=== PATIENT | male | born 1945 | race Two or more races ===

== ENCOUNTER 2024-09-16 23:02 | Inpatient (IN) | payer OTHER, SELFPAY ==
[2024-09-16 19:17] VITALS: BP 142/49; BMI 28.1
[2024-09-16 19:29] LABS: % Basophils 0.3 % (0-2); % Eosinophils 0.1 % (0-6); % Immature Granulocytes 0.4 % (0-0.5); % Lymphocytes 4.6 % (20.5-51.1); % Monocytes 6.6 % (1.7-9.3); Absolute Basophils 0.1 10^3/uL (0-0.2); Absolute Immature Granulocytes 0.1 10^3/uL (0-0.05); Absolute Lymphocytes 0.9 10^3/uL (1.2-3.4); Absolute Monocytes 1.2 10^3/uL (0.1-0.6); Absolute Neutrophils 16.4 10^3/uL (1.4-6.5); Hematocrit 38.4 % (39.0-52.0); Hemoglobin 13.3 g/dL (13.0-18.0); Mean Corp Hgb Conc. 34.6 g/dL (33.0-37.0); Mean Corpuscular Volume 89.5 fL (80.0-94.0); Mean Platelet Volume 8.8 fL (7.4-10.4); Nucleated Red Blood Cells % 0 % (-); Platelet Count 192 10^3/uL (130-400); Red Blood Cell Count 4.29 10^6/uL (4.70-6.10); Red Cell Dist. Width 13.4 % (11.5-14.5); White Blood Cell Count 18.6 10^3/uL (4.8-10.8)
[2024-09-16] MEDS: TYLENOL 650 MG PO (19:38)
[2024-09-16 19:44] LABS: Blood Urea Nitrogen 23 mg/dl (9-20); Calcium 9.5 mg/dl (8.4-10.2); Carbon Dioxide 30 mmol/L (22-30); Chloride 99 mmol/L (98-107); Estimated Creatinine Clearance 49 ml/min; Glucose 209 mg/dl (70-99); Sodium 137 mmol/L (135-145); eGFR > 60.00
[2024-09-16 19:45] LABS: Lactic Acid 1.9 mmol/L (0.7-2.0)
--- NOTE | 2024-09-16 19:50 | ED.GENMED ---
History of Present Illness
General
Chief Complaint: Fever
Source: patient and family
Time Seen by Provider: 09/16/24 19:36
History of Present Illness
History of Present Illness:
This patient is a 79-year-old male that presents emergency department with generally feeling unwell since last afternoon. He went out this morning around 8 AM to clean the yard and he came into the house and said he just does not feel good. He has
not had anything to eat or drink all day and had an episode of vomiting just prior to the ambulance taking patient here. He describes feeling tired. He denies headache, photophobia, recent tick bites, rash, cough, sore throat, rhinorrhea, dysuria,
urgency, frequency, hematuria, back pain. His states he has not been confused. He does note generalized abdominal discomfort that is vague and difficult to describe. He also has felt since yesterday that he is not passing urine. He was
bladder scanned here, consistent with 110 mL, was encouraged to urinate and passed approximately 50 mL for analysis here.
Past History
Past History
ED Past Medical History: HTN, Hypercholesterolemia and NIDDM
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
Social History
Tobacco: Non-smoker
Alcohol: None
Drug: None
Personal:
Living: with family
Phy Exam
Physical Exam
Physical Exam:
GENERAL: Awake but tired appearing, in no apparent distress
EYE: pupils equal and reactive, no photophobia
NECK: Supple, no significant adenopathy.
ENT: o/p clr, mm slightly dry.
CARDIAC: Regular rate and rhythm .
LUNGS: Clear breath sounds bilaterally, no acute respiratory distress, no wheezes/rales/rhonchi
ABDOMEN: Soft, diffuse nonspecific mild tenderness, no r/g, no cvat
NEUROLOGICAL: Awake and oriented, no focal neuro deficits
SKIN: Warm and dry, skin intact.
MUSCULOSKELETAL: No edema, well perfused.
PSYCH: Normal and appropriate interaction.
Sepsis
Sepsis Screening
Sepsis Assessment: Sepsis
Sepsis Screen
Sepsis Screen: Sepsis
Date: 09/16/24
Time: 22:20
Course
Orders/Labs/Results
Orders:
Orders
09/16/24 19:22
Basic Metabolic Panel Urgent
Complete Blood Count/With Diff Urgent
Lactic Acid Q4H
Comment: ON ICE, CANCEL 2ND ORDER IF FIRST LACTIC ACID LEVEL <2
Urinalysis Reflex To Culture Urgent
Date Specimen was Collected: 09/16/24
Time Specimen was Collected: 19:17
Urine Microscopic Reflex Cult Urgent
Blood Culture Q20M
AYAD Source: Blood/Venous
Specimen Description:
Comment: Urgent from separate sites. If patient screens positive for possible sepsis
Urine Culture Urgent
AYAD Source: U
Specimen Description:
Date Specimen was Collected: 09/16/24
Time Specimen was Collected: 19:17
09/16/24 19:37
Acetaminophen [Tylenol] 650 mg .ROUTE .STK-MED ONE
09/16/24 19:38
Acetaminophen [Tylenol] 650 mg PO NOW STA
09/16/24 19:49
Electrocardiogram (*1) Urgent
Reason for Study: Other
Other Reason for Exam: sepsis
CT Abd/pelvis W Iv Cont Urgent
Comment:
Reason For Exam: fever, abd pain
Cardiac Monitoring- Treatment ONCE
EKG- Treatment ONCE
0.9% Sodium Chloride 1000 ml [Nss] 1,800 ml IV NOW STA
09/16/24 19:57
Blood Culture Q20M
AYAD Source: Blood/Venous
Specimen Description:
Comment: Urgent from separate sites. If patient screens positive for possible sepsis
09/16/24 20:16
CR Chest - 2 Views Urgent
Comment:
Reason For Exam: fever
09/16/24 21:02
Cefepime HCl [Maxipime] 2,000 mg IV NOW STA
09/16/24 21:34
Sterile Water [Sterile Water For Injection] 10 ml .ROUTE .K-MED ONE
09/16/24 21:56
Electrocardiogram (*1) Urgent
Reason for Study: Other
Other Reason for Exam: sepsis
EKG- Treatment ONCE
09/16/24 22:09
Admit/Transfer Patient As Directed
Co-Sign Provider:
Level of Care: Inpatient admission
Assign to:: Telemetry
Physician / Group: [email or web address]
Diagnosis: sepsis due to UTI
Reason for Telemetry: Other
Other Reason for Telemetry: sepsis due to UTI
Date to Stop Telemetry: 09/18/24
Time to Stop Telemetry: 11:00
Reason for Hospitalization: sepsis due to UTI
Expected length of stay greater than two midnights?: Yes
ELOS- Estimated Length of Stay in days: 3
I certify the patient meets the requirements for IP care: Yes
09/16/24 22:11
Code Status As Directed
Resuscitation Status: Full Code
09/16/24 23:30
Lactic Acid Q4H
Comment: ON ICE, CANCEL 2ND ORDER IF FIRST LACTIC ACID LEVEL <2
09/18/24 11:00
DC Protocol for Telemetry ONCE
Abnormal Lab Results
09/16/24
19:22
WBC 18.6 H 10^3/uL
(4.8-10.8)
RBC 4.29 L 10^6/uL
(4.70-6.10)
Hct 38.4 L %
(39.0-52.0)
Abs Immat Gran (auto) 0.1 H 10^3/uL
(0-0.05)
Absolute Neuts (auto) 16.4 H 10^3/uL
(1.4-6.5)
Absolute Lymphs (auto) 0.9 L 10^3/uL
(1.2-3.4)
Absolute Monos (auto) 1.2 H 10^3/uL
(0.1-0.6)
Neutrophils % 88.0 H %
(42.2-75.2)
Lymphocytes % 4.6 L %
(20.5-51.1)
BUN 23 H mg/dl
(9-20)
Glucose 209 H mg/dl
(70-99)
Ur Occult Blood Reflex 3+ A
(Negative)
Leukocyte Esterase Rfl 1+ A
(Negative)
Urine RBC 11-15 A /HPF
(0-2)
Urine WBC (Reflex) 26-30 A /HPF
(0-5)
Urine Bacteria (Reflex) Few A
(Negative)
Urine Glucose 3+ A
(Negative)
Urine Albumin (Reflex) 2+ A
(Neg - Trace)
09/16/24 19:22
09/16/24 19:22
Vital Signs
Initial and Last Documented VS:
Initial Vital Signs
Temp Pulse Resp BP Pulse Ox
102.5 F H 88 26 142/49 92
09/16/24 19:17 09/16/24 19:17 09/16/24 19:17 09/16/24 19:17 09/16/24 19:17
Last Documented Vital Signs
Temp Pulse Resp BP Pulse Ox
100.3 F 80 26 157/53 88
09/16/24 21:13 09/16/24 21:30 09/16/24 19:17 09/16/24 21:00 09/16/24 21:30
*Pulse Oximetry
SaO2: 92
Oxygen Mode of Delivery: Room air
*Critical Care Note
Total Time (30-74mins, 75-104mins- exclusive of procedures): 32
Update Note
Update Note:
Patient presents to the Emergency Department with difficulty passing urine, fever, weakness
Number and Complexity of Problems Addressed at the Encounter
� Chronic conditions affecting care:
� Acute Exacerbation and/or Progression of Chronic Illness:
� Differential Diagnosis includes: But not limited to pyelonephritis, sepsis, cholecystitis, urinary obstruction, etc. etc.
Amount and/or Complexity of Data to be Reviewed and Analyzed
� I performed an independent evaluation of and my interpretation is:
EKG: Read by me, normal sinus rhythm, normal rate, no acute ischemia
CT:Moderate diffuse bladder wall thickening concerning for cystitis versus bladder outlet obstruction.
Moderate prostate hypertrophy.
Gallstone.
Simple right renal cyst. Too small to characterize hypodense left renal lesion likely a benign cyst
Xrays: Chest x-ray NAD
Laboratory Studies: Normal lactic acid, leukocytosis noted, mild prerenal azotemia consistent with suspected dehydration, UA highly suggestive of infection
Other:
� Review of other/old records reveals: None available
� Clinical information was obtained by an independent historian: and neighbor who are bedside
� Prescriptions/Medications Considered but not given:
� Further testing considered but not performed:
Risk of Complications and/or Morbidity or Mortality of Patient Management
� Social determinants of health affecting care:
� Discussion with other providers (PCP, Hospitalists, Consultants, etc):
� Escalation of care including admission/observation vs risk of discharge considered: RN states that patient was noted to be unsteady and weak nonfocally upon walking here in the ER.
9:47 PM history physical findings etc. consistent with urosepsis. No findings to suggest obstructing stone, hydronephrosis, etc. Antibiotics and IV fluids started will discussed with hospitalist for admission and continued care
955pm case d/w his daughter, neurologist, with details re:case, questions answered, no concerns.
ED Attending Note
-
Portions of this chart may have been created with voice recognition software.� Occasional wrong word or��sound alike� substitutions may have occurred due to the inherent limitations of voice recognition software.
Discharge Plan
Departure
Patient Disposition: Admit
Date of Disposition: 09/16/24
Time of Disposition: 21:47
Admit to: Telemetry
Presentation/result/management discussed w/ accepting MD/DO: Hospitalist
Condition: Fair
Discharge Problem:
urosepsis
Prescriptions:
No Action
gabapentin 600 mg Tablet
600 mg PO HS
atorvastatin 20 mg Tablet
20 mg PO DAILY
metformin 850 mg Tablet
850 mg PO BIDWMEAL
Theragen Tablet
1 tab PO DAILY
amlodipine 5 mg Tablet
5 mg PO DAILY
acetaminophen [Tylenol Extra Strength] 500 mg Tablet
500 - 1,000 mg PO BIDPRN PRN (Reason: mild pain)
glimepiride 2 mg Tablet
2 mg PO BID
ascorbic acid (vitamin C) [Vitamin C] 500 mg Tablet
500 mg PO DAILY
docusate sodium [Colace] 100 mg Capsule
100 mg PO DAILY PRN (Reason: constipation)
aspirin 81 mg Tablet,Chewable
81 mg PO DAILY
lisinopril 40 mg Tablet
40 mg PO DAILY
atenolol 50 mg Tablet
50 mg PO DAILY
hydrochlorothiazide 12.5 mg Tablet
12.5 mg PO DAILY
Jardiance 10 mg Tablet
10 mg PO DAILY
Patient Comments:
09/16/2024, per spouse, spouse stopped giving pt. this med. because she thought it might be associated with him feeling weak.
Maalox
1 dose PO BIDPRN PRN (Reason: constipation)
Patient Comments:
09/16/2024, per spouse, pt. takes '1 ounce' of this med.
cyanocobalamin (vitamin B-12)
1 tab PO DAILY
thiamine HCl (vitamin B1)
1 tab PO DAILY
Referrals:
Alexander Garcia DO [Family Provider, Family Practice]
Interventions
Interventions:
*Risk Screen - Suicide Last Done: 09/16/24 19:43
*General Assessment Last Done: 09/16/24 19:43
*Neglect/Abuse Screening Last Done: 09/16/24 19:43
ED- Neurological Assessment Last Done: 09/16/24 19:30
ED-Skin Assessment Last Done: 09/16/24 19:30
Discharge Date and Time
Print Language: ERITREAN
[2024-09-16 19:51] LABS: Urine Albumin 2+ (Neg - Trace); Urine Bilirubin Negative (Negative); Urine Character Clear (Clear); Urine Color Yellow; Urine Glucose 3+ (Negative); Urine Ketone Negative (Negative); Urine Leukocyte 1+ (Negative); Urine Nitrite Negative (Negative); Urine Occult Blood 3+ (Negative); Urine Urobilinogen Negative (Neg - 1+)
[2024-09-16] MEDS: NSS 1800 ML IV (19:55)
[2024-09-16 20:00] VITALS: BP 141/67
[2024-09-16 20:08] LABS: Urine Squamous Cell 0-2 /LPF (Few)
[2024-09-16 20:09] LABS: Urine Bacteria Few (Negative); Urine White Cell 26-30 /HPF (0-5)
[2024-09-16 21:00] VITALS: BP 157/53
[2024-09-16] MEDS: MAXIPIME 2000 MG IV (21:52)
--- NOTE | 2024-09-16 21:53 | HPS.HSE ---
Family Physician
-
Family Physician: Alexander Garcia, DO
Chief Complaint
-
feeling unwell, low urine output
History of Present Illness
HPI
79M HX DMT2, HTN, HLD seen at ER:
- reports generally feeling unwell since last afternoon.
- not had anything to eat or drink all day and had an episode of vomiting just prior to the ambulance taking patient here.
- feeling tired
- states he has not been confused.
- reportws generalized abdominal discomfort that is vague and difficult to describe.
- felt since yesterday that he is not passing urine.
- bladder scanned here, consistent with 110 mL, was encouraged to urinate and passed approximately 50 mL for analysis here.
ROS:
- denies headache, photophobia, recent tick bites, rash, cough, sore throat, rhinorrhea, dysuria, urgency, frequency, hematuria, back pain.
Medical History
Past Medical History
Past Medical History: Reports HTN, Hypercholesterolemia and NIDDM
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
Social History
Tobacco: Non-smoker
Alcohol: None
Drug: None
Personal:
Living: With Family
Family History
Family History: Not pertinent
Allergies / Home Medications
Allergies reflects when Allergies were last updated in [employer].
Home Medications with original date entered in [employer]
Allergy/Medication List:
Allergies
Allergy/AdvReac Type Severity Reaction Status Date / Time
No Known Allergies Allergy Verified 09/16/24 19:16
Home Medications
Maalox 1 dose PO BIDPRN PRN constipation 09/16/24
acetaminophen 500 mg tablet (Tylenol Extra Strength) 500 - 1,000 mg PO BIDPRN PRN mild pain 09/16/24
amlodipine 5 mg tablet 5 mg PO DAILY 09/16/24
ascorbic acid (vitamin C) 500 mg tablet (Vitamin C) 500 mg PO DAILY 09/16/24
aspirin 81 mg chewable tablet 81 mg PO DAILY 09/16/24
atenolol 50 mg tablet 50 mg PO DAILY 09/16/24
atorvastatin 20 mg tablet 20 mg PO DAILY 09/16/24
cyanocobalamin (vitamin B-12) 1 tab PO DAILY 09/16/24
docusate sodium 100 mg capsule (Colace) 100 mg PO DAILY PRN constipation 09/16/24
empagliflozin 10 mg tablet (Jardiance) 10 mg PO DAILY 09/16/24
gabapentin 600 mg tablet 600 mg PO HS 09/16/24
glimepiride 2 mg tablet 2 mg PO BID 09/16/24
hydrochlorothiazide 12.5 mg tablet 12.5 mg PO DAILY 09/16/24
lisinopril 40 mg tablet 40 mg PO DAILY 09/16/24
metformin 850 mg tablet 850 mg PO BIDWMEAL 09/16/24
therapeutic multivitamin 1 tab PO DAILY 09/16/24
thiamine HCl (vitamin B1) 1 tab PO DAILY 09/16/24
Review of Systems
-
Constitutional: Reports See HPI and Fatigue
EENT: Reports No Symptoms
Respiratory: Reports No Symptoms
Cardiac: Reports No Symptoms
Abdomen/GI: Reports No Symptoms
: Reports No Symptoms
Musculoskeletal: Reports No Symptoms
Skin: Reports No Symptoms
Neurological: Reports No Symptoms
Endocrine: Reports No Symptoms
Hematologic/Lymphatic: Reports No Symptoms
Psych: Reports No Symptoms
Physical Exam
Vital Signs
Vital Signs
Temp Pulse Resp BP Pulse Ox
100.3 F 80 26 157/53 88
09/16/24 21:13 09/16/24 21:30 09/16/24 19:17 09/16/24 21:00 09/16/24 21:30
Physical Exam
General: Well Developed, Well Nourished and No Apparent Distress
HEENT: NormoCephalic, Moist mucous membranes and Atraumatic
Respiratory: Clear
Cardiac: S1/S2 and Regular Rhythm; No Murmur or Rub
GI: Soft, Non Tender, Non Distended and Normal Bowel Sounds; No Organomegaly
Rectal: Deferred by Provider
Musculoskeletal: No Clubbing, No Cyanosis and No Edema
Skin: No Rash
Neuro: Nonfocal/grossly intact
Laboratory Results
-
09/16/24 19:22
09/16/24 19:22
Laboratory Results
Lactic Acid 1.9 mmol/L (0.7-2.0) 09/16/24 19:22
Total Bilirubin Cancelled 09/16/24 19:22
AST Cancelled 09/16/24 19:22
ALT Cancelled 09/16/24 19:22
Alkaline Phosphatase Cancelled 09/16/24 19:22
Data Reviewed
-
Diagnostic Radiology: Report Reviewed by me
CT Scan: Report Reviewed by me
Medical Tests (Nuc Med, Echo, EKG etc): Report Reviewed by me
Lab Data: Labs Reviewed by me
Impression/Plan
-
Relevant VSS
09/16/24
19:17
Temp 102.5 F H
Pulse 88
Resp Rate 26
Blood pressure 142/49
SaO2 92
Oxygen Mode of Delivery Room air
Relevant Labs
09/16/24
19:22
WBC 18.6 H
Neutrophils % 88.0 H
Creatinine 1.0
eGFR > 60.00
Glucose 209 H
Lactic Acid 1.9
Urine Clarity Clear
Urine Nitrite (Reflex) Negative
Leukocyte Esterase Rfl 1+ A
Urine RBC 11-15 A
Urine WBC (Reflex) 26-30 A
Urine Bacteria (Reflex) Few A
CXR: No acute disease of the chest.
CT Abd/pelvis W Iv Cont
- Moderate diffuse bladder wall thickening concerning for cystitis versus bladder outlet obstruction.
- Moderate prostate hypertrophy.
- Gallstone.
- Simple right renal cyst. Too small to characterize hypodense left renal lesion likely a benign cyst
NO PRIOR hospitalist admission:
ASSESSMENT & PLAN
Sepsis due to UTI - LA 1.[address] AP findings to suggest obstructing stone, hydronephrosis
Unremarkable Bladder scan for Bladder retention
- BCx sent
- s/p NS 1.8 L
- empiric IV CFP
- Hold Empagliflozin
DMT2
- Hold Metformin
- Hold Empagliflozin due to urosepsis
- Hold Glimepiride for now due to unknow PO intake with curent sepsis
- add ISS low
Benign HTN
- Hold amlodipine, HCTZ and Lisinopril for now due to urosepsis
- c/w Atenolol with hold for SBP < 110
HLD
- c/w [employer] Atorvastatin
DVT Px: LMWH
Code: Full
IP TLM
[2024-09-16 23:30] VITALS: BP 167/78; BMI 29.2
[2024-09-16] MEDS: NSS 1000 IV (23:55)
--- NOTE | 2024-09-17 00:32 | PTCARENOTE ---
Pt arrived to the floor via stretcher. Pt was transferred from stretcher to bed. Pt oriented to room. Pt AAOx3. Pt's VS stable, temperature elevated. Tylenol ordered Q4, PRN. Too early to administer another dose of Tylenol. Continuing to monitor
Pt's temperature. Plan of care ongoing, call serna within reach.
[2024-09-17 03:13] VITALS: BP 132/65
[2024-09-17] MEDS: TYLENOL 650 MG PO ×3 (03:33→17:50)
[2024-09-17 04:19] LABS: Urine Albumin 1+ (Neg - Trace); Urine Bilirubin Negative (Negative); Urine Character Clear (Clear); Urine Color Amber; Urine Glucose Negative (Negative); Urine Ketone Negative (Negative); Urine Leukocyte Negative (Negative); Urine Nitrite Negative (Negative); Urine Occult Blood 2+ (Negative); Urine Urobilinogen Negative (Neg - 1+)
[2024-09-17 05:38] LABS: Urine Bacteria Few (Negative); Urine Red Blood Cell 26-30 /HPF (0-2)
[2024-09-17] MEDS: MAXIPIME 1000 MG IV ×3 (06:07→22:07)
[2024-09-17] MEDS: STERILE WATER FOR INJECTION 10 ML IV ×3 (06:08→22:07)
[2024-09-17 07:05] VITALS: BP 136/60
[2024-09-17] MEDS: TENORMIN 50 MG PO (07:52)
[2024-09-17] MEDS: LIPITOR 20 MG PO (07:53)
[2024-09-17] MEDS: LOW STRENGTH ASPIRIN 81 MG PO (07:53)
[2024-09-17 07:57] LABS: Glucose - Point of Care 156 mg/dl (70-99)
[2024-09-17] MEDS: NOVOLOG FLEXPEN-LOW RESISTANCE 1 UNITS SC ×2 (07:57→13:32)
[2024-09-17 08:08] LABS: Hematocrit 36.8 % (39.0-52.0); Hemoglobin 12.7 g/dL (13.0-18.0); Mean Corp Hgb Conc. 34.5 g/dL (33.0-37.0); Mean Corpuscular Hgb 30.8 pg (27.0-31.0); Mean Corpuscular Volume 89.3 fL (80.0-94.0); Mean Platelet Volume 9.2 fL (7.4-10.4); Platelet Count 158 10^3/uL (130-400); Red Blood Cell Count 4.12 10^6/uL (4.70-6.10); Red Cell Dist. Width 13.5 % (11.5-14.5); White Blood Cell Count 20.1 10^3/uL (4.8-10.8)
[2024-09-17 09:35] LABS: Glycohemoglobin (HgbA1c) 7.1 % (4.0-5.6)
[2024-09-17 10:21] LABS: ALT (SGPT) 35 U/L (0-50); AST (SGOT) 24 U/L (17-59); Albumin 3.8 g/dl (3.5-5.0); Alkaline Phosphatase 54 U/L (38-126); Blood Urea Nitrogen 18 mg/dl (9-20); Calcium 8.4 mg/dl (8.4-10.2); Carbon Dioxide 24 mmol/L (22-30); Chloride 107 mmol/L (98-107); Estimated Creatinine Clearance 54 ml/min; Glucose 141 mg/dl (70-99); Sodium 139 mmol/L (135-145); Total Bilirubin 0.9 mg/dl (0.2-1.3); Total Protein 6.6 g/dl (6.3-8.2); eGFR > 60.00
[2024-09-17] MEDS: NSS 1000 IV (12:43)
--- NOTE | 2024-09-17 13:14 | W.PN.HOSP.TC ---
Today's Communication/Plan
-
Assessment / Plan
Assessment / Plan
General: No Apparent Distress, Comfortable and Conversant
HEENT: NormoCephalic, Moist mucous membranes, Atraumatic
Respiratory: Clear and Non Labored Respirations
Cardiac: S1/S2 and Regular Rhythm; No Rub or Gallop
GI: Soft, Non Tender, Non Distended and Normal Bowel Sounds
Musculoskeletal: No Edema, no deformity
Skin: Warm and dry
: NO Cao
Neuro: Awake, Alert, Nonfocal/grossly intact
Psych: Calm and cooperative
Mr. Ugalde is an 79-year-old male with a medical history of ztc-[id number] diabetes mellitus and hypertension who presented after feeling generally unwell for approximately 1 day prior to arrival. He described associated generalized fatigue
and had an episode of vomiting. He has been intermittently febrile since admission however remained normotensive. He had a leukocytosis of almost 19,000 initial labs with normal chemistries. Urinalysis showed pyuria and bacteriuria. CT imaging
was abdomen pelvis showed evidence of cystitis and moderate prostate hypertrophy. He was bolused 1.8 L of normal saline, cultures were obtained, and he was started on antibiotics with cefepime. He has been admitted for further evaluation and
management of sepsis secondary to UTI.
Sepsis secondary to UTI:
- Continue antibiotics with cefepime for now, follow-up cultures
- Continue maintenance fluids
- CT imaging consistent with cystitis versus bladder outlet obstruction and prostate hypertrophy
- Will monitor postvoid residuals, start Flomax
- Hold empagliflozin, should likely not be restarted on any SGLT2 inhibitors
Btq-axvbmbf-dawdkpfvo diabetes mellitus:
- Patient uses glimepiride, empagliflozin, and metformin at home
- Will cover with sliding scale insulin for now
- Hold empagliflozin or any SGLT2 inhibitors indefinitely considering UTI
- Hemoglobin A1c of 7.1%
Hypertension:
- Blood pressure has remained well-controlled so far this admission with home atenolol 50 mg daily
- Holding home amlodipine, lisinopril, and HCTZ for now
- Add back additional home antihypertensive agents as needed for optimal blood pressure control
DVT prophylaxis: Lovenox
CODE STATUS: Full code
Total time spent on today's encounter was 39 minutes
Anticipated Discharge: 24 - 48 hours
Subjective/Interval History
-
Date of Service: September 17, 2024
Patient was seen and examined at bedside this morning. Reports ongoing burning with urination. No abdominal pain.
Objective Data
-
Labs:
Laboratory Results
09/17/24 09/17/24
07:41 09:25
WBC 20.1 H
Hgb 12.7 L
Hct 36.8 L
Plt Count 158
Sodium Cancelled 139
Potassium Cancelled 4.0
Chloride Cancelled 107
Carbon Dioxide Cancelled 24
BUN Cancelled 18
Creatinine Cancelled 1.0
Glucose Cancelled 141 H
Calcium Cancelled 8.4
Total Bilirubin Cancelled 0.9
AST Cancelled 24
ALT Cancelled 35
Alkaline Phosphatase Cancelled 54
Vital Signs:
Vital Signs
Temp Pulse Resp BP Pulse Ox
99.7 F 87 16 136/60 95
09/17/24 12:14 09/17/24 07:52 09/17/24 07:05 09/17/24 07:52 09/17/24 07:05
Review of Systems
-
History Source: Patient
All other systems: Reviewed and negative
Genitourinary: Reports Dysuria
Physical Exam
-
General: No Apparent Distress
[2024-09-17 13:24] LABS: Glucose - Point of Care 179 mg/dl (70-99)
[2024-09-17] MEDS: FLOMAX 0.4 MG PO (13:36)
[2024-09-17 15:00] VITALS: BP 123/50
[2024-09-17 16:39] LABS: Glucose - Point of Care 200 mg/dl (70-99)
[2024-09-17] MEDS: NOVOLOG FLEXPEN-LOW RESISTANCE 2 UNITS SC (17:39)
[2024-09-17] MEDS: LOVENOX 40 MG SC (17:42)
[2024-09-17 19:56] VITALS: BP 110/62
--- NOTE | 2024-09-17 20:17 | W.PN.UPDATE ---
Update Note
Progress Note Update
8pm Reported by the nursing staff that the patient is sob. Bp 110/62, Spo2 96% on 2L RR 16
On exam, Patient with expiratory wheezing, complaining of sob denies chest pain. Denies history of asthma, COPD and never smoke before. Patient with PMH of HTN. Denies any cardiac history and never seen by cardiology before.
Neb treatment given.
chest x-ray, cbc, bmp, pro.BNP, mag, covid, and flu ordered.
Covid/flu (neg)
Chest x-ray shows
1. Interval increase in mild opacity in the right lower lung along the diaphragmatic pleural surface (right lower and/or middle lobe) which could be secondary to pneumonia or atelectasis.
2. Moderate elevation of the right hemidiaphragm.
3. Moderate cardiomegaly.
4. Severe calcific atherosclerotic plaque in the coronary arteries and thoracic aorta.
WBC is trending up 24.8, previously 20.1, patient still afebrile, blood culture still pending and currently on Cefepime.
-Pro-BNP 4800,
-One time order of IV lasix given
-Cardiology consult placed
-IVF decreased initially from 80cc/hr to 40 cc/hr but will d/c for now.
around 2:30 am reported by the nursing staff that the patient is wheezing again.
Patient noted with inspiratory and expiratory wheezing during the exam, looks sob but denies sob, Spo2 still stable 96%. BP 133/70, hr 90 and RR 17.
Duo nebs given patient still wheezing, one dose of IV Decadron given and another dose of lasix IV 20mg was given.
Spoke to the daughter/Joselyn [phone] and updated
Will transfer the patient to IMU for close monitoring.
[2024-09-17] MEDS: DUONEB 3 ML INH (20:39)
[2024-09-17 21:05] LABS: Glucose - Point of Care 228 mg/dl (70-99)
[2024-09-17 21:17] LABS: COVID-19 Antigen Negative (Negative)
[2024-09-17 21:39] LABS: Hemoglobin 10.6 g/dL (13.0-18.0); Mean Corp Hgb Conc. 35.3 g/dL (33.0-37.0); Mean Corpuscular Hgb 31.4 pg (27.0-31.0); Mean Corpuscular Volume 88.8 fL (80.0-94.0); Platelet Count 109 10^3/uL (130-400); Red Blood Cell Count 3.38 10^6/uL (4.70-6.10); Red Cell Dist. Width 13.8 % (11.5-14.5); White Blood Cell Count 24.8 10^3/uL (4.8-10.8)
[2024-09-17 21:42] VITALS: BP 121/56
[2024-09-17 21:50] LABS: Blood Urea Nitrogen 27 mg/dl (9-20); Calcium 7.8 mg/dl (8.4-10.2); Carbon Dioxide 24 mmol/L (22-30); Chloride 102 mmol/L (98-107); Estimated Creatinine Clearance 45 ml/min; Glucose 213 mg/dl (70-99); Magnesium 1.6 mg/dl (1.6-2.3); Potassium 3.9 mmol/L (3.5-5.1); Sodium 132 mmol/L (135-145); eGFR > 60.00
[2024-09-17 21:54] LABS: NT-proBNP 4800 pg/ml
[2024-09-17] MEDS: LASIX 40 MG IV (22:05)
[2024-09-17] MEDS: NEURONTIN 600 MG PO (22:08)
[2024-09-17] MEDS: MELATONIN PO (22:57)
[2024-09-17] MEDS: CALCIUM GLUCONATE 100 IV (23:12)
[2024-09-17] MEDS: MELATONIN 5 MG PO (23:16)
[2024-09-18] VITALS (19 sets, daily range): BP systolic 82–141; BP diastolic 42–96; PULSE 70–74; O2SAT 95; BMI 28.9
[2024-09-18] MEDS: NSS IV (02:04)
[2024-09-18] MEDS: DUONEB 3 ML INH (02:08)
[2024-09-18] MEDS: DECADRON 4 MG IV (02:19)
[2024-09-18] MEDS: LASIX 20 MG IV (02:41)
[2024-09-18] MEDS: OFIRMEV 100 IV (02:41)
--- NOTE | 2024-09-18 03:55 | PTCARENOTE ---
rec'd pt from [facility] - Pt is aaox3, but tired. pt is on 2L SpO2=94%, RR=16. lungs diminished. no c/o chest pain or trouble breathing at this time. pt bladder scan for 400ml. pt unable to void at this time, but was incontinent earlier. pt has a
rectal temp 101.5. - had Ofirmev at 0241. ice packs placed on pt. S/w [employer] Nilda- lactic acid added to labs. pt oriented to room w/ call serna.
[2024-09-18 04:10] LABS: Lactic Acid 1.1 mmol/L (0.7-2.0)
[2024-09-18 04:11] LABS: Blood Urea Nitrogen 29 mg/dl (9-20); Calcium 7.8 mg/dl (8.4-10.2); Carbon Dioxide 24 mmol/L (22-30); Chloride 106 mmol/L (98-107); Estimated Creatinine Clearance 37 ml/min; Glucose 123 mg/dl (70-99); Potassium 3.8 mmol/L (3.5-5.1); Sodium 136 mmol/L (135-145); eGFR 55.19
[2024-09-18 04:39] LABS: % Basophils 0.2 % (0-2); % Eosinophils 0.1 % (0-6); % Lymphocytes 3.9 % (20.5-51.1); % Monocytes 4.4 % (1.7-9.3); % Neutrophils 87.4 % (42.2-75.2); Absolute Basophils 0.1 10^3/uL (0-0.2); Absolute Immature Granulocytes 0.9 10^3/uL (0-0.05); Absolute Lymphocytes 0.9 10^3/uL (1.2-3.4); Absolute Neutrophils 20.4 10^3/uL (1.4-6.5); Hemoglobin 10.4 g/dL (13.0-18.0); Mean Corp Hgb Conc. 34.7 g/dL (33.0-37.0); Mean Corpuscular Hgb 31.3 pg (27.0-31.0); Mean Corpuscular Volume 90.4 fL (80.0-94.0); Mean Platelet Volume 9.4 fL (7.4-10.4); Nucleated Red Blood Cells % 0 % (-); Platelet Count 118 10^3/uL (130-400); Red Blood Cell Count 3.32 10^6/uL (4.70-6.10); Red Cell Dist. Width 13.8 % (11.5-14.5); White Blood Cell Count 23.4 10^3/uL (4.8-10.8)
[2024-09-18] MEDS: MAXIPIME 1000 MG IV ×3 (05:09→21:43)
[2024-09-18] MEDS: STERILE WATER FOR INJECTION 10 ML IV ×3 (05:09→21:43)
[2024-09-18 07:29] LABS: Glucose - Point of Care 198 mg/dl (70-99)
[2024-09-18] MEDS: FLOMAX 0.4 MG PO (07:57)
[2024-09-18] MEDS: LIPITOR 20 MG PO (07:57)
[2024-09-18] MEDS: LOW STRENGTH ASPIRIN 81 MG PO (07:57)
[2024-09-18] MEDS: NOVOLOG FLEXPEN-LOW RESISTANCE 1 UNITS SC (07:57)
[2024-09-18] MEDS: TENORMIN PO (08:01)
--- NOTE | 2024-09-18 08:35 | CON.CAR ---
Consultation
Consultation Request
Date/Time Consultation Requested: September 18, 2024
Date/Time Consultation Performed: September 18, 2024
Requesting Provider: Hospitalist
Performing Provider: Aakash
Reason for Consultation: Elevated BNP presumably
Medical History
-
Chief Complaint: Elevated BNP
History of Present Illness:
Mr. Ugalde is an 79-year-old male with a medical history of fua-ydcaife-zppegomfo diabetes mellitus and hypertension who presented after feeling generally unwell for approximately 1 day prior to arrival. He described associated generalized fatigue
and had an episode of vomiting. He has been intermittently febrile since admission however remained normotensive. He had a leukocytosis of almost 19,000 initial labs with normal chemistries. Urinalysis showed pyuria and bacteriuria. CT imaging
was abdomen pelvis showed evidence of cystitis and moderate prostate hypertrophy. He was bolused 1.8 L of normal saline, cultures were obtained, and he was started on antibiotics with cefepime. He has been admitted for further evaluation and
management of sepsis secondary to UTI. We are consulted due to an elevated BNP of 4800. He does have an elevated hemidiaphragm and evidence for some vascular congestion on chest x-ray. He has moderate coronary calcifications on his chest x-ray.
His Palestinian is somewhat limited but his ECG is essentially normal and he has no active chest pain or pressure. 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 He has no chest pain or pressure. He did have some
wheezing yesterday and received a dose of 20 mg of IV Lasix and a dose of 40 mg of IV Lasix as best I can tell from the chart and he has hypertension which is well-managed on atenolol and amlodipine.
Past Medical History
Past Medical History: Other (Urosepsis)
Social History
Tobacco: Non-Smoker
Alcohol: None
Drug: None
Personal: Other
Living: With Family
Employment: Not Employed
Family History
Family History: Reviewed & Not Pertinent
Allergies / Home Medications
Allergy/AdvReac Type Severity Reaction Status Date / Time
No Known Allergies Allergy Verified 09/16/24 19:16
�Medication �Instructions �Recorded �Confirmed �Type
Maalox 1 dose PO BIDPRN PRN constipation 09/16/24 09/16/24 History
acetaminophen 500 mg tablet 500 - 1,000 mg PO BIDPRN PRN mild 09/16/24 09/16/24 History
(Tylenol Extra Strength) pain
amlodipine 5 mg tablet 5 mg PO DAILY 09/16/24 09/16/24 History
ascorbic acid (vitamin C) 500 mg 500 mg PO DAILY 09/16/24 09/16/24 History
tablet (Vitamin C)
aspirin 81 mg chewable tablet 81 mg PO DAILY 09/16/24 09/16/24 History
atenolol 50 mg tablet 50 mg PO DAILY 09/16/24 09/16/24 History
atorvastatin 20 mg tablet 20 mg PO DAILY 09/16/24 09/16/24 History
cyanocobalamin (vitamin B-12) 1 tab PO DAILY 09/16/24 09/16/24 History
docusate sodium 100 mg capsule 100 mg PO DAILY PRN constipation 09/16/24 09/16/24 History
(Colace)
empagliflozin 10 mg tablet 10 mg PO DAILY 09/16/24 09/16/24 History
(Jardiance)
gabapentin 600 mg tablet 600 mg PO HS 09/16/24 09/16/24 History
glimepiride 2 mg tablet 2 mg PO BID 09/16/24 09/16/24 History
hydrochlorothiazide 12.5 mg tablet 12.5 mg PO DAILY 09/16/24 09/16/24 History
lisinopril 40 mg tablet 40 mg PO DAILY 09/16/24 09/16/24 History
metformin 850 mg tablet 850 mg PO BIDWMEAL 09/16/24 09/16/24 History
therapeutic multivitamin 1 tab PO DAILY 09/16/24 09/16/24 History
thiamine HCl (vitamin B1) 1 tab PO DAILY 09/16/24 09/16/24 History
Review of Systems
-
All other systems: Negative unless noted
Respiratory: Trouble Breathing
Cardiac: No Symptoms
: Dysuria and Frequency
Physical Exam
Vital Signs
Temp Pulse Resp BP Pulse Ox
98.9 F 70 15 109/55 93
09/18/24 08:15 09/18/24 08:01 09/18/24 06:15 09/18/24 08:01 09/18/24 06:15
Lab Results
09/18/24 03:43
09/18/24 03:43
Kst-Z-Ntbdszzabiv Pept 4800 pg/ml 09/17/24 20:55
Physical Exam
General: Well Developed and Well Nourished
HEENT: Normocephalic
Respiratory: Wheezes
Cardiac: S1/S2, Regular Rhythm and Murmur (No murmur)
Breast: Deferred by me
GI: Soft, Non Tender and Non Distended
Rectal: Deferred by Provider
Genito-urinary: Turbid Urine
Musculoskeletal: No Clubbing, No Cyanosis and Edema (Trace edema)
Skin: Warm and Dry
Neuro: Awake, Alert and Oriented
Hematologic/Lymphatic: No Lymphadenopathy
Psych: Calm
Impression / Plan
-
Impression:
Elevated BNP
Unclear prior cardiac workup
Moderate coronary calcifications on chest x-ray
Normal EKG
Urosepsis
Hypertension
Recommendations:
Reasonable to give 1 more dose of IV Lasix today and 3 to 5 days of Lasix p.o. 20 mg if he is having ongoing dyspnea
Careful with IV hydration
Treating the urosepsis as you are
Follow daily creatinine
I did order an echocardiogram on Friday to assess ejection fraction
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
Keep blood pressures well-controlled on current therapy
We will sign off but can come back if there are further questions or if his echocardiogram has notable findings
Data Reviewed
-
EKG: Tracing Personally Visualized and interpreted
Radiology: Image Personally Visualized and interpreted
Labs: Labs Reviewed by me
Old Records: Requested
--- NOTE | 2024-09-18 09:59 | PTCARENOTE ---
Patient with no complaints, reports 'tired.' VSS. NSR on monitor. 95% on 2L NC. Bed alarm on for safety. Will closely monitor patient.
--- NOTE | 2024-09-18 10:24 | CM ---
Malayalam/Thai speaking patient with Dx Sepsis secondary to UTI. O2 2L. Receiving IV Abx. Per nurse activity note; assist of 2.
Met with patient, Irish and daughter Joselyn Ugalde, here visiting from [place] until tomorrow (ph [phone]);
information provided by daughter.
the patient resides with his in a 2 story house with no outside steps, and first floor bedroom/bathroom setup.
He was independent in ADLs and ambulation, active and driving.
The patient and recently returned from a 3 month trip to [facility].
DME - CPAP (not using)
No prior VN or SNF
PCP - Alexander Garcia
Pharmacy - [facility]
Daughter states that patient has not been ambulating the last few days prior to admission, and he won't mobilize unless asked to do so ---message to Dr Noel requesting PT Eval.
Plan follow up after seen by PT.
[2024-09-18 13:07] LABS: Glucose - Point of Care 353 mg/dl (70-99)
[2024-09-18] MEDS: NOVOLOG FLEXPEN-LOW RESISTANCE 5 UNITS SC ×2 (13:08→17:44)
--- NOTE | 2024-09-18 13:50 | W.PN.HOSP.TC ---
Today's Communication/Plan
-
Assessment / Plan
Assessment / Plan
General: No Apparent Distress, Comfortable and Conversant
HEENT: NormoCephalic, Moist mucous membranes, Atraumatic
Respiratory: Clear and Non Labored Respirations
Cardiac: S1/S2 and Regular Rhythm; No Rub or Gallop
GI: Soft, Non Tender, Non Distended and Normal Bowel Sounds
Musculoskeletal: No Edema, no deformity
Skin: Warm and dry
: NO Cao
Neuro: Awake, Alert, Nonfocal/grossly intact
Psych: Calm and cooperative
Mr. Ugalde is an 79-year-old male with a medical history of dml-pvbplea-ekkpgkbbp diabetes mellitus and hypertension who presented after feeling generally unwell for approximately 1 day prior to arrival. He described associated generalized fatigue
and had an episode of vomiting. He has been intermittently febrile since admission however remained normotensive. He had a leukocytosis of almost 19,000 initial labs with normal chemistries. Urinalysis showed pyuria and bacteriuria. CT imaging
was abdomen pelvis showed evidence of cystitis and moderate prostate hypertrophy. He was bolused 1.8 L of normal saline, cultures were obtained, and he was started on antibiotics with cefepime. He has been admitted for further evaluation and
management of sepsis secondary to UTI.
Sepsis secondary to UTI:
- Continue antibiotics with cefepime for now, urine cultures growing E. coli with sensitivities pending, blood cultures negative to date
- Discontinued IV fluids due to apparent volume overload, persistent leukocytosis likely in part due to steroids given overnight for reported wheezing
- CT imaging consistent with cystitis versus bladder outlet obstruction and prostate hypertrophy
- Will monitor postvoid residuals, start Flomax
- Hold empagliflozin, should likely not be restarted on any SGLT2 inhibitors
- Anticipate transitioning to oral antibiotics and discharged home in the next 24 hours
Volume overload:
- Suspect due to IV fluids given for sepsis, elevated BNP
- Hold IV fluids, given 2 doses of IV Lasix, will give additional Lasix as needed
- Currently breathing comfortably, does not appear clinically volume overloaded
- Evaluated by cardiology, echocardiogram pending but would not keep inpatient just to complete echo if not done before completing inpatient treatment for sepsis due to UTI
Qwl-keudzzo-mvbdhzvie diabetes mellitus:
- Patient uses glimepiride, empagliflozin, and metformin at home
- Will cover with sliding scale insulin for now
- Hold empagliflozin or any SGLT2 inhibitors indefinitely considering UTI
- Hemoglobin A1c of 7.1%
Hypertension:
- Blood pressure has remained well-controlled so far this admission with home atenolol 50 mg daily
- Holding home amlodipine, lisinopril, and HCTZ for now
- Add back additional home antihypertensive agents as needed for optimal blood pressure control
DVT prophylaxis: Lovenox
CODE STATUS: Full code
Total time spent on today's encounter was 40 minutes
Anticipated Discharge: 24 - 48 hours
Subjective/Interval History
-
Date of Service: September 18, 2024
Patient was seen and examined at bedside this morning. No acute distress, comfortable. He was upgraded to IMU overnight due to an episode of shortness of breath and wheezing. Labs showed elevated BNP, chest x-ray showed possible pulmonary edema.
IV fluids were discontinued and he was given a dose of IV Lasix. He reports feeling fine now and says he did not feel bad last night either.
Objective Data
-
Labs:
Laboratory Results
09/18/24
03:43
WBC 23.4 H
Hgb 10.4 L
Hct 30.0 L
Plt Count 118 L
Sodium 136
Potassium 3.8
Chloride 106
Carbon Dioxide 24
BUN 29 H
Creatinine 1.3
Glucose 123 H
Calcium 7.8 L
Vital Signs:
Vital Signs
Temp Pulse Resp BP Pulse Ox
98.9 F 75 17 133/56 94
09/18/24 08:15 09/18/24 12:15 09/18/24 12:15 09/18/24 12:00 09/18/24 12:15
I&O
09/17/24 09/18/24 09/19/24
06:59 06:59 06:59
Output Total 625 / 625 1100 / 1100
Balance -625 / -625 -1100 / -1100
Review of Systems
-
History Source: Patient
All other systems: Reviewed and negative
Physical Exam
-
General: No Apparent Distress
[2024-09-18 16:02] LABS: Glucose - Point of Care 366 mg/dl (70-99)
[2024-09-18] MEDS: LOVENOX 40 MG SC (17:44)
[2024-09-18 17:55] LABS: Glucose - Point of Care 357 mg/dl (70-99)
[2024-09-18] MEDS: MELATONIN 5 MG PO (21:41)
[2024-09-18] MEDS: NEURONTIN 600 MG PO (21:42)
[2024-09-18 21:44] LABS: Glucose - Point of Care 297 mg/dl (70-99)
[2024-09-19] VITALS (13 sets, daily range): BP systolic 113–175; BP diastolic 51–94; BMI 28.9
[2024-09-19] MEDS: TYLENOL 650 MG PO ×2 (02:58→21:40)
[2024-09-19 03:27] LABS: Hematocrit 32.3 % (39.0-52.0); Hemoglobin 11.3 g/dL (13.0-18.0); Mean Corpuscular Hgb 31.2 pg (27.0-31.0); Mean Corpuscular Volume 89.2 fL (80.0-94.0); Platelet Count 128 10^3/uL (130-400); Red Blood Cell Count 3.62 10^6/uL (4.70-6.10); Red Cell Dist. Width 13.7 % (11.5-14.5)
[2024-09-19 03:42] LABS: Carbon Dioxide 25 mmol/L (22-30); Estimated Creatinine Clearance 44 ml/min; eGFR > 60.00
[2024-09-19 03:56] LABS: Blood Urea Nitrogen 39 mg/dl (9-20); Calcium 8.1 mg/dl (8.4-10.2); Chloride 109 mmol/L (98-107); Glucose 181 mg/dl (70-99); Potassium 3.9 mmol/L (3.5-5.1); Sodium 137 mmol/L (135-145)
[2024-09-19] MEDS: MAXIPIME 1000 MG IV (06:06)
[2024-09-19] MEDS: STERILE WATER FOR INJECTION 10 ML IV (06:06)
[2024-09-19 07:29] LABS: % Basophils 0.2 % (0-2); % Eosinophils 0.2 % (0-6); % Immature Granulocytes 0.8 % (0-0.5); % Monocytes 4.8 % (1.7-9.3); Absolute Basophils 0.1 10^3/uL (0-0.2); Absolute Eosinophils 0.1 10^3/uL (0-0.7); Absolute Immature Granulocytes 0.2 10^3/uL (0-0.05); Absolute Lymphocytes 1.2 10^3/uL (1.2-3.4); Absolute Monocytes 1.2 10^3/uL (0.1-0.6); Absolute Neutrophils 22.3 10^3/uL (1.4-6.5); Nucleated Red Blood Cells % 0 % (-)
[2024-09-19 08:02] LABS: Glucose - Point of Care 189 mg/dl (70-99)
[2024-09-19] MEDS: NOVOLOG FLEXPEN-LOW RESISTANCE 1 UNITS SC (09:22)
[2024-09-19] MEDS: LOW STRENGTH ASPIRIN 81 MG PO (09:24)
[2024-09-19] MEDS: FLOMAX 0.4 MG PO (09:24)
[2024-09-19] MEDS: LIPITOR 20 MG PO (09:25)
[2024-09-19] MEDS: TENORMIN 50 MG PO (09:25)
--- NOTE | 2024-09-19 11:12 | W.PN.HOSP.TC ---
Today's Communication/Plan
-
Assessment / Plan
Assessment / Plan
General: No Apparent Distress, Comfortable and Conversant
HEENT: NormoCephalic, Moist mucous membranes, Atraumatic
Respiratory: Clear and Non Labored Respirations
Cardiac: S1/S2 and Regular Rhythm; No Rub or Gallop
GI: Soft, Non Tender, Non Distended and Normal Bowel Sounds
Musculoskeletal: No Edema, no deformity
Skin: Warm and dry
: NO Cao
Neuro: Awake, Alert, Nonfocal/grossly intact
Psych: Calm and cooperative
Mr. Ugalde is an 79-year-old male with a medical history of utg-wkenzlb-sesbqwogh diabetes mellitus and hypertension who presented after feeling generally unwell for approximately 1 day prior to arrival. He described associated generalized fatigue
and had an episode of vomiting. He has been intermittently febrile since admission however remained normotensive. He had a leukocytosis of almost 19,000 initial labs with normal chemistries. Urinalysis showed pyuria and bacteriuria. CT imaging
was abdomen pelvis showed evidence of cystitis and moderate prostate hypertrophy. He was bolused 1.8 L of normal saline, cultures were obtained, and he was started on antibiotics with cefepime. He has been admitted for further evaluation and
management of sepsis secondary to UTI.
Sepsis secondary to UTI:
- Continue antibiotics with cefepime for now, urine cultures growing E. coli sensitive to cefepime but resistant to ampicillin cefazolin and Bactrim, blood cultures negative to date
- Transitioned antibiotics to cefuroxime p.o. to complete a 10-day course
- Discontinued IV fluids due to apparent volume overload
- Worsening leukocytosis despite apparent clinical improvement, no fever since document scanner of 09/18, will ask for input from ID
- CT abdomen pelvis consistent with cystitis versus bladder outlet obstruction and prostate hypertrophy, CT angiography negative for PE
- Dysuria resolved, continue Flomax
- Hold empagliflozin, should likely not be restarted on any SGLT2 inhibitors
- Anticipate transitioning to oral antibiotics and discharged home in the next 24 hours
Volume overload:
- Suspect due to IV fluids given for sepsis, elevated BNP
- Discontinued IV fluids, given 2 doses of IV Lasix, will give additional Lasix as needed
- Currently breathing comfortably, does not appear clinically volume overloaded
- Evaluated by cardiology, echocardiogram pending but would not keep inpatient just to complete echo, if not done before completing inpatient treatment for sepsis due to UTI would recommend obtaining outpatient
Wjf-dwpmbko-zcuhfgcgo diabetes mellitus:
- Patient uses glimepiride, empagliflozin, and metformin at home
- Will cover with sliding scale insulin for now
- Hold empagliflozin or any SGLT2 inhibitors indefinitely considering UTI
- Hemoglobin A1c of 7.1%
Hypertension:
- Blood pressure has remained well-controlled so far this admission with home atenolol 50 mg daily
- Holding home amlodipine, lisinopril, and HCTZ for now
- Add back additional home antihypertensive agents as needed for optimal blood pressure control
DVT prophylaxis: Lovenox
CODE STATUS: Full code
Total time spent on today's encounter was 40 minutes
Anticipated Discharge: 24 - 48 hours
Subjective/Interval History
-
Date of Service: September 19, 2024
Patient was seen and examined at bedside this morning. Reports feeling generally well and dysuria has resolved. His leukocytosis is worsening however for unclear reason. CT angiography negative for PE.
Objective Data
-
Labs:
Laboratory Results
09/19/24
03:02
WBC 25.0 H
Hgb 11.3 L
Hct 32.3 L
Plt Count 128 L
Sodium 137
Potassium 3.9
Chloride 109 H
Carbon Dioxide 25
BUN 39 H
Creatinine 1.1
Glucose 181 H
Calcium 8.1 L
Vital Signs:
Vital Signs
Temp Pulse Resp BP Pulse Ox
98 F 64 20 134/75 94
09/19/24 07:05 09/19/24 10:30 09/19/24 10:30 09/19/24 10:00 09/19/24 10:38
I&O
09/18/24 09/19/24 09/20/24
06:59 06:59 06:59
Output Total 625 / 625 2049
Balance -625 / -625 -2049
Review of Systems
-
History Source: Patient
All other systems: Reviewed and negative
Physical Exam
-
General: No Apparent Distress
[2024-09-19] MEDS: NOVOLOG FLEXPEN-LOW RESISTANCE 2 UNITS SC (12:07)
[2024-09-19 12:22] LABS: Glucose - Point of Care 203 mg/dl (70-99)
[2024-09-19] MEDS: CEFTIN 250 MG PO (13:05)
--- NOTE | 2024-09-19 13:40 | CON.ID ---
Consultation
-
Date/Time Consultation Requested: September 19, 2024 1105
Date/Time Consultation Performed: September 19, 2024 1340
Requesting Provider: Dr. Price
Performing Provider: Dr. Alyssa Castro
Reason for Consultation: UTI with persistent leukocytosis
Chief Complaint / Past History
Chief Complaint
Decreased urine output
History of Present Illness
History obtained from the patient, his and neurologist daughter at bedside. He is an 79-year-old male with history of diabetes mellitus type 2, BPH who presented to the ER September 16 due to unable to void. He and his recently spent 3 months
in their home country [facility] and just returned to [place] last week. Per daughter patient felt unwell during the flight back. He was not drinking much fluids. Decreased p.o. intake. Urine output was minimal. No dysuria. Then he started
vomiting on Friday, September 16 and therefore came to the hospital. Patient noted to have temperature 102.5. White count 18.6. Lactic acid 7.1. Bladder scan [address] of the abdomen and pelvis with mildly distended urinary bladder with
moderate diffuse wall thickening, prostate moderately enlarged. He was started on cefepime. Urine culture positive for E. coli. Blood cultures negative. Today transitioned cefepime to oral cefuroxime. In the meantime his white count has trended
up to 25. Platelet count also decreasing now at 128. CT chest showed no PE, no pneumonia. Per , blood work in [place] was normal. No mosquito bites or insect bites while in [facility]. No known ill contacts. No animal bites. No diarrhea.
Patient has history of constipation. Last bowel movement was about 4 to 5 days ago. Patient now able to void well. No dysuria. No flank pain. No headache. No cough. No shortness of breath now. No chest pain. Nausea resolved. No current
abdominal pain.
Past History
Additional Past Medical History:
Diabetes mellitus type 2
BPH
Hypertension
HLD
Chronic constipation
Additional Past Surgical History:
History of brain surgery after trauma
Allergy History:
No Known Allergies Allergy (Verified 09/16/24 19:16)
Medications Reviewed: Yes
Current Antibiotics:
s/p cefepime 09/16 to 09/19 am.
Cefuroxime.
Social History
Tobacco: Non-Smoker
Alcohol: None
Drug: None
Personal:
Living: With Family
Family History
Family History: Not Pertinent
Review of Systems
Review of Systems
HEENT: Negative Sinus Problems, Headache or Pharyngitis
Cardiovascular: Negative Chest Pain
Respiratory: Negative Dyspnea or Cough
Gasteroenterology: Other (is constipated); Negative Diarrhea
Genital / Urological: Negative Dysuria or Flank Pain
Endocrine: Weakness
Musculoskeletal: Negative Arthralgias
Skin / Hair / Nails: Negative Rash
Neurological: Negative Dizziness
All systems: All other systems were reviewed and were negative
Vital Signs
Temp Pulse Resp BP Pulse Ox
98 F 64 20 134/75 94
09/19/24 11:15 09/19/24 10:30 09/19/24 10:30 09/19/24 10:00 09/19/24 10:38
Physical Exam
Physical Exam
Constitutional: No Acute Distress and Comfortable
Head: Other (No frontal or maxillary sinus tenderness)
Eyes: No Conjunctival Hemorrhage and Sclera Anicteric
Cardiovascular: Regular Rate and S1/S2
Pulmonary: Clear
Gastrointestinal: Soft, Non Tender, Non Distended and Normal Bowel Sounds
Genito-Urinary: Negative Suprapubic Tenderness or CVA Tenderness
Extremities: Edema (LLE 1+ ankle edema); Negative Erythema
Skin: Negative Rash
Neurological: AO x 3
Lab / Diagnostic Study Results
09/19/24 03:02
09/19/24 03:02
Abs Immat Gran (auto) 0.2 10^3/uL (0-0.05) H 09/19/24 03:02
Absolute Neuts (auto) 22.3 10^3/uL (1.4-6.5) H 09/19/24 03:02
Absolute Lymphs (auto) 1.2 10^3/uL (1.2-3.4) 09/19/24 03:02
Absolute Monos (auto) 1.2 10^3/uL (0.1-0.6) H 09/19/24 03:02
Absolute Basos (auto) 0.1 10^3/uL (0-0.2) 09/19/24 03:02
Immature Gran % 0.8 % (0-0.5) H 09/19/24 03:02
Neutrophils % 89.0 % (42.2-75.2) H 09/19/24 03:02
Lymphocytes % 5.0 % (20.5-51.1) L 09/19/24 03:02
Monocytes % 4.8 % (1.7-9.3) 09/19/24 03:02
Eosinophils % 0.2 % (0-6) 09/19/24 03:02
Basophils % 0.2 % (0-2) 09/19/24 03:02
Lactic Acid 1.1 mmol/L (0.7-2.0) 09/18/24 03:43
Ur Squamous Epith Cells 3-5 /LPF (Few) 09/17/24 03:44
Microbiology Results
Micro:
09/16/24 19:22 Urine Culture - Final
Urine Escherichia coli
09/17/24 07:41 Blood Culture - Preliminary
Blood/Venous No Growth in 48 hours- Final report to follow
09/16/24 19:57 Blood Culture - Preliminary
Blood/Venous No Growth in 48 hours- Final report to follow
09/16/24 19:22 Blood Culture - Preliminary
Blood/Venous No Growth in 48 hours- Final report to follow
09/17/24 20:55 Influenza Types A & B ([facility]) - Final
Nasal Swab Negative for Influenza A & B, NAAT
Negative results must be combined with clinical observations
and patient history.
Nucleic Acid Amplification test (NAAT)performed on the
[employer] platform.
09/19/[address]: No evidence of pulmonary embolism with confidence to the proximal subsegmental pulmonary artery divisions. Unfortunately, there is respiratory motion artifact and image degradation, resulting in nondiagnostic assessment of the
distal subsegmental pulmonary arteries.
09/16/24 CT a/p: Moderate diffuse bladder wall thickening concerning for cystitis versus bladder outlet obstruction. Moderate prostate hypertrophy.
Assessment / Plan
# E. coli UTI
# Fever resolved
# Leukocytosis trending up
# Acute thrombocytopenia, trending down
.Possibly from cefepime
# Return traveler from [place] (3 month stay)
- Bcx's neg
-CT C/A/P: no source of refractory leukocytosis
- No diarrhea to explain leukocytosis
- Ordered BLE peripheral vascular US to eval for DVT
- Replace cefuroxime (not effective) with doxycycline 100mg po bid for UTI.
- Follow WBC and plt counts
# Chronic constipation
-Ordered Miralax daily.
# DM2
Care Review
Plan reviewed with: Physician (Dr. Price)
[2024-09-19] MEDS: MIRALAX 17 GRAMS PO (15:16)
[2024-09-19] MEDS: VIBRAMYCIN 100 MG PO ×2 (15:16→21:38)
--- NOTE | 2024-09-19 16:11 | PTCARENOTE ---
Patient currently off unit to US for US of LE'S. Dr. Castro to see patient and made adjustments to antibiotics. VS stable, afebrile. Spo2 92-94% on room air. Patient denies SOB. SR on monitor.
[2024-09-19 17:43] LABS: Glucose - Point of Care 253 mg/dl (70-99)
[2024-09-19] MEDS: NOVOLOG FLEXPEN-LOW RESISTANCE 3 UNITS SC (17:45)
[2024-09-19] MEDS: LOVENOX 40 MG SC (17:46)
[2024-09-19] MEDS: MELATONIN 10 MG PO (21:38)
[2024-09-19] MEDS: NEURONTIN 600 MG PO (21:39)
[2024-09-19 21:42] LABS: Glucose - Point of Care 305 mg/dl (70-99)
--- NOTE | 2024-09-19 22:25 | PTCARENOTE ---
Assumed care of pt and assessment completed and documented. Pt's at bedside initially and upon discussion, she reports pt takes 10 mg Melatonin and Tylenol at hs for generalized discomfort and insomnia. pt is o x3 and hopeful to be discharged
soon. Pt and informed of ECHO that is ordered for tomorrow. Pt resting quietly in bed on room air with pulse ox 92%
[2024-09-20] VITALS (8 sets, daily range): BP systolic 114–174; BP diastolic 49–78; BMI 28.0
--- NOTE | 2024-09-20 01:27 | PTCARENOTE ---
Assumed care from previous RN. Pt AAOx3. Pt refusing scd's, education given video ordered. Pt able to make needs known. Call serna within reach bed in lowest position.
[2024-09-20 05:12] LABS: % Basophils 0.5 % (0-2); % Eosinophils 2.6 % (0-6); % Immature Granulocytes 2.1 % (0-0.5); % Lymphocytes 11.3 % (20.5-51.1); % Monocytes 4.2 % (1.7-9.3); % Neutrophils 79.3 % (42.2-75.2); Absolute Basophils 0.1 10^3/uL (0-0.2); Absolute Eosinophils 0.5 10^3/uL (0-0.7); Absolute Immature Granulocytes 0.4 10^3/uL (0-0.05); Absolute Lymphocytes 2.1 10^3/uL (1.2-3.4); Absolute Monocytes 0.8 10^3/uL (0.1-0.6); Absolute Neutrophils 15.1 10^3/uL (1.4-6.5); Hemoglobin 11.6 g/dL (13.0-18.0); Mean Corp Hgb Conc. 35.2 g/dL (33.0-37.0); Mean Corpuscular Volume 88.2 fL (80.0-94.0); Mean Platelet Volume 10.1 fL (7.4-10.4); Nucleated Red Blood Cells % 0 % (-); Platelet Count 145 10^3/uL (130-400); Red Blood Cell Count 3.74 10^6/uL (4.70-6.10); Red Cell Dist. Width 14.2 % (11.5-14.5)
[2024-09-20 05:46] LABS: Blood Urea Nitrogen 31 mg/dl (9-20); Calcium 8.2 mg/dl (8.4-10.2); Carbon Dioxide 27 mmol/L (22-30); Chloride 109 mmol/L (98-107); Estimated Creatinine Clearance 54 ml/min; Glucose 147 mg/dl (70-99); Sodium 142 mmol/L (135-145); eGFR > 60.00
[2024-09-20 07:50] LABS: Glucose - Point of Care 139 mg/dl (70-99)
--- NOTE | 2024-09-20 08:19 | W.PN.HOSP.TC ---
Addendum entered and electronically signed by Delfin Garibay DO 09/20/24 15:24:
Echocardiogram shows normal size and function of left ventricle, EF 55 to 60%, normal diastolic function.
Okay to discharge on oral antibiotics, outpatient follow-up.
Original Note:
Today's Communication/Plan
-
Await echocardiogram
Possible discharge
Assessment / Plan
Assessment / Plan
Gen-AAOx3, NAD
HEENT-NC, AT, anicteric, clear oral mm
Neck-supple
CV-reg, no M, +S1/S2
Lungs-clear B/L
Abd-soft, NT, ND
Ext-no edema
Musculoskeletal-no cyanosis, clubbing
Skin-warm and dry
Neuro-grossly non-focal
Psych-calm, cooperative
E. coli sepsis secondary to UTI: Leukocytosis now improving. Continue doxycycline per ID.
- CT abdomen pelvis consistent with cystitis versus bladder outlet obstruction and prostate hypertrophy, CT angiography negative for PE
- Dysuria resolved, continue Flomax
- Hold empagliflozin, should likely not be restarted on any SGLT2 inhibitors
Volume overload: Presumed acute heart failure exacerbation, unknown type.
- Suspect due to IV fluids given for sepsis, elevated BNP 4800.
- Discontinued IV fluids, given 2 doses of IV Lasix, will give additional Lasix as needed
- Currently breathing comfortably, does not appear clinically volume overloaded
- Evaluated by cardiology, echocardiogram pending.
Acute thrombocytopenia -possibly due to cefepime. Resolved.
DM2 with hyperglycemia
- Patient uses glimepiride, empagliflozin, and metformin at home
- Will cover with sliding scale insulin for now
- Hold empagliflozin or any SGLT2 inhibitors indefinitely considering UTI
- Hemoglobin A1c of 7.1%
Essential hypertension:
- Blood pressure has remained well-controlled so far this admission with home atenolol 50 mg daily
- Holding home amlodipine, lisinopril, and HCTZ for now
- Add back additional home antihypertensive agents as needed for optimal blood pressure control
Hyperlipidemia -atorvastatin.
Chronic constipation -high-fiber diet, continue MiraLAX.
Obesity due to excess calories
DVT prophylaxis: Lovenox
Full code
Dispo -possible discharge later today if echocardiogram unremarkable. Outpatient follow-up.
Anticipated Discharge: Today
Subjective/Interval History
-
Date of Service: September 20, 2024
Patient seen and examined. No complaints.
Objective Data
-
Labs:
Laboratory Results
09/20/24
04:53
WBC 19.0 H
Hgb 11.6 L
Hct 33.0 L
Plt Count 145
Sodium 142
Potassium 4.0
Chloride 109 H
Carbon Dioxide 27
BUN 31 H
Creatinine 0.9
Glucose 147 H
Calcium 8.2 L
Vital Signs:
Vital Signs
Temp Pulse Resp BP Pulse Ox
98.5 F 58 15 132/74 97
09/20/24 07:35 09/20/24 06:00 09/20/24 06:00 09/20/24 06:00 09/20/24 06:00
I&O
09/19/24 09/20/24 09/21/24
06:59 06:59 06:59
Intake Total 1685 / 1685
Output Total 2049 1475 / 1475 350 / 350
Balance -2049 -2049 210 / 210 -350 / -350
Review of Systems
-
History Source: Patient
All other systems: Reviewed and negative
[2024-09-20] MEDS: NOVOLOG FLEXPEN-LOW RESISTANCE SC (08:31)
[2024-09-20] MEDS: VIBRAMYCIN 100 MG PO ×2 (08:32→16:34)
[2024-09-20] MEDS: FLOMAX 0.4 MG PO (08:32)
[2024-09-20] MEDS: LIPITOR 20 MG PO (08:32)
[2024-09-20] MEDS: LOW STRENGTH ASPIRIN 81 MG PO (08:32)
[2024-09-20] MEDS: MIRALAX 17 GRAMS PO (08:32)
[2024-09-20] MEDS: TENORMIN 50 MG PO (09:08)
--- NOTE | 2024-09-20 09:59 | PTCARENOTE ---
Patient states feeling much better. VSS. On RA, sats 92%, still c/o some MENDOZA. No BM since before admission, abdomen more distended and round than Friday, miralax given. Patient denies urinary issues, voiding appropriately. Patient making needs
known and hopeful for DC today after echo. Will closely monitor.
--- NOTE | 2024-09-20 10:54 | CM ---
Addendum entered by Cassie Mai 09/20/24 12:04:
Pt and spouse now declining VN
Spouse notes she is a nurse and will help him
Advised to follow up with PCP should future need arise of VN
Update to Dr Garibay
Original Note:
CM reviewed chart- ADC today pending echo
VN recs by therapy
Bedside meeting with pt and spouse
VN discussed and pt in agreement as long as no out of pocket costs
Referral to [facility] per pt request
VN order requested
IMM verbally reviewed- copy provided
Discharge Disposition- home with [facility], spouse will call neighbor for ride home
--- NOTE | 2024-09-20 11:55 | VNURNOTE ---
[facility] liaison met with patient and spouse at bedside. Explained [facility] services: short term, intermittent, skilled. Explained that patient qualifies for VN, PT, OT in the home- no copays w/his insurance. He and spouse are declining at this time.
Instructed if they change their minds once home, to follow up with PCP and PCP can order home services. Verbalized understanding, CM Jn aware. No referral placed.
[2024-09-20 12:14] LABS: Glucose - Point of Care 168 mg/dl (70-99)
[2024-09-20] MEDS: NOVOLOG FLEXPEN-LOW RESISTANCE 1 UNITS SC (12:36)
--- NOTE | 2024-09-20 13:02 | W.PN.ID1 ---
Date of Service
Date of Service: September 20, 2024
Today's Communication
Continue doxycycline 100mg po bid through 09/29/24
Assessment / Plan
# E. coli UTI
# Fever resolved
# Leukocytosis trending down
# Acute thrombocytopenia, resolved
.Possibly from cefepime
# Return traveler from [place] (3 month stay)
- Bcx's neg
-CT C/A/P: no source of refractory leukocytosis
- No diarrhea to explain leukocytosis
- BLE peripheral vascular US neg DVT
- Continue doxycycline 100mg po bid through 09/29/24.
- Follow WBC outpatient with PCP, if dc home today.
# Chronic constipation
- Continue bowel regimen
# DM2
Chief Complaint
-: Leukocytosis and UTI
Subjective / Review of Systems
Feels better. 1 BM today.
Vital Signs / Physical Exam
Vital Signs
Vital Signs
Temp Pulse Resp BP Pulse Ox
98.7 F 59 26 153/73 92
09/20/24 10:59 09/20/24 12:00 09/20/24 12:00 09/20/24 12:00 09/20/24 08:00
Physical Exam
Constitutional: No Acute Distress and Comfortable
Cardiovascular: Regular Rate and S1/S2
Pulmonary: Clear
Gastrointestinal: Soft, Non Tender and Non Distended
Genito-Urinary: Negative Suprapubic Tenderness or CVA Tenderness
Neurological: AO x 3
Objective Data
Lab Data
Lab Results
09/20/24 04:53
09/20/24 04:53
Estimated Creat Clear 54 ml/min 09/20/24 04:53
Lactic Acid 1.1 mmol/L (0.7-2.0) 09/18/24 03:43
Total Bilirubin 0.9 mg/dl (0.2-1.3) 09/17/24 09:25
AST 24 U/L (17-59) 09/17/24 09:25
ALT 35 U/L (0-50) 09/17/24 09:25
Alkaline Phosphatase 54 U/L (38-126) 09/17/24 09:25
Most recent labs reviewed.
Micro Results:
09/17/24 07:41 Blood Culture - Preliminary
Blood/Venous No Growth in 72 hours- Final report to follow
09/16/24 19:57 Blood Culture - Preliminary
Blood/Venous No Growth in 72 hours- Final report to follow
09/16/24 19:22 Blood Culture - Preliminary
Blood/Venous No Growth in 72 hours- Final report to follow
09/16/24 19:22 Urine Culture - Final
Urine Escherichia coli
09/17/24 20:55 Influenza Types A & B ([facility]) - Final
Nasal Swab Negative for Influenza A & B, NAAT
Negative results must be combined with clinical observations
and patient history.
Nucleic Acid Amplification test (NAAT)performed on the
[employer] platform.
09/19/[address]: No evidence of pulmonary embolism with confidence to the proximal subsegmental pulmonary artery divisions. Unfortunately, there is respiratory motion artifact and image degradation, resulting in nondiagnostic assessment of the
distal subsegmental pulmonary arteries.
09/16/24 CT a/p: Moderate diffuse bladder wall thickening concerning for cystitis versus bladder outlet obstruction. Moderate prostate hypertrophy.
--- NOTE | 2024-09-20 15:27 | W.DS.TRANS ---
DC Summary - Engineering Technical Writer
-
Discharge Instructions:
Discharge Diagnosis/Procedures Sepsis secondary to UTI
Diet Diabetic, Carb Controlled
Activity As tolerated
Driving Restrictions As prior to admission
Bathing Restrictions None
Instructions:
Stand-Alone Forms:
Changes to Home Medications: Yes
Discharge Medications:
DC Medications w/original date entered in [facility]
Maalox 1 dose PO BIDPRN PRN constipation 09/16/24
acetaminophen 500 mg tablet (Tylenol Extra Strength) 500 - 1,000 mg PO BIDPRN PRN mild pain 09/16/24
amlodipine 5 mg tablet 5 mg PO DAILY Blood Pressure 09/16/24
Held on 09/20/24. Instructions: Hold until follow-up with primary care physician for ongoing blood pressure monitoring
ascorbic acid (vitamin C) 500 mg tablet (Vitamin C) 500 mg PO DAILY Supplement 09/16/24
aspirin 81 mg chewable tablet 81 mg PO DAILY Blood Clot Prevention/Tx 09/16/24
atenolol 50 mg tablet 50 mg PO DAILY Blood Pressure 09/16/24
atorvastatin 20 mg tablet 20 mg PO DAILY High Cholesterol 09/16/24
cyanocobalamin (vitamin B-12) 1 tab PO DAILY Supplement 09/16/24
docusate sodium 100 mg capsule (Colace) 100 mg PO DAILY PRN constipation 09/16/24
gabapentin 600 mg tablet 600 mg PO HS Neurological Condition 09/16/24
glimepiride 2 mg tablet 2 mg PO BID Diabetes 09/16/24
hydrochlorothiazide 12.5 mg tablet 12.5 mg PO DAILY Blood Pressure 09/16/24
lisinopril 40 mg tablet 40 mg PO DAILY Blood Pressure 09/16/24
Held on 09/20/24. Instructions: Hold until follow-up with PCP for ongoing blood pressure monitoring
metformin 850 mg tablet 850 mg PO BIDWMEAL Diabetes 09/16/24
therapeutic multivitamin 1 tab PO DAILY Supplement 09/16/24
thiamine HCl (vitamin B1) 1 tab PO DAILY Supplement 09/16/24
tamsulosin 0.4 mg capsule 0.4 mg PO DAILY 90 days #90 caps 09/19/24
doxycycline hyclate 100 mg capsule 100 mg PO BID #19 caps 09/20/24
Home Medication Changes
Stop Jardiance
Pending Results: No
--- NOTE | 2024-09-20 16:05 | PTCARENOTE ---
DC instructions reviewed with patient and . All questions answered. VSS. IV and tele removed. Patient to be picked up by friend shortly. Will take to lobby by wheelchair.
== END 2024-09-20 17:46 | disposition home or self-care (01) | DRG 871 ==
LOC: IMU 23:02
PROVIDERS: Emergency Medicine; Internal Medicine; Nurse Practitioner Family; Nurse Practitioner Gerontology; ADMITTING PHYSICIAN Internal Medicine; ATTENDING PHYSICIAN Hospitalist; CONSULT PHYSICIAN Internal Medicine Infectious Disease; EMERGENCY PHYSICIAN Emergency Medicine; FAMILY PHYSICIAN Family Medicine; OTHER PHYSICIAN Internal Medicine Cardiovascular Disease
DX: A41.51 Sepsis due to Escherichia coli [E. coli] (principal); I50.33 Acute on chronic diastolic (congestive) heart failure; N30.90 Cystitis, unspecified without hematuria; I11.0 Hypertensive heart disease with heart failure; D69.6 Thrombocytopenia, unspecified; E11.65 Type 2 diabetes mellitus with hyperglycemia; E78.00 Pure hypercholesterolemia, unspecified; K59.09 Other constipation; Z79.82 Long term (current) use of aspirin; Z79.84 Long term (current) use of oral hypoglycemic drugs; Z79.899 Other long term (current) drug therapy; Z11.52 Encounter for screening for COVID-19; I25.10 Atherosclerotic heart disease of native coronary artery without angina pectoris; N40.0 Benign prostatic hyperplasia without lower urinary tract symptoms
CPT/HCPCS: 51798; 71045; 71046; 71275; 74177; 80048; 80053; 81003; 81015; 82962; 83036; 83605; 83735; 83880; 85025; 85027; 87040; 87077; 87086; 87186; 87502; 87811; 93005; 93306; 93970; 94640; 96361; 96374; 97162; 97167; 99291; Q9967